=== PATIENT | female | born 2000 | race Asian ===

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

== ENCOUNTER 2019-02-02 15:52 | Outpatient (CLI) | payer BC ==
[2019-02-02 17:08] LABS: PLATELET COUNT 410 K/uL (152-353); SODIUM 140 mmol/L (136-145)
== END 2019-02-02 21:10 | disposition home or self-care (01) ==
LOC: LABW 15:52
PROVIDERS: Nurse Practitioner Family
DX: Z79.899 Other long term (current) drug therapy (principal)
CPT/HCPCS: 36415; 80053; 84702; 85027

== ENCOUNTER 2019-06-25 01:52 | Emergency (ER) | payer BC ==
[~2019-06-25] VITALS: Ht 144.8 cm; Wt 73.0 kg
[2019-06-25 01:55] VITALS: BP 125/89; TEMP 97.8
== END 2019-06-25 02:50 | disposition home or self-care (01) ==
LOC: ED 01:52
PROC: 09C37ZZ Extirpation of Matter from Right External Auditory Canal, Via Natural or Artificial Opening (ICD-10-PCS; principal; 2019-06-25)
DX: T16.1XXA Foreign body in right ear, initial encounter (principal)
CPT/HCPCS: 99283

== ENCOUNTER 2020-01-22 20:14 | Emergency (ER) | payer BC ==
[~2020-01-22] VITALS: Ht 144.8 cm; Wt 72.6 kg
[2020-01-22 21:02] LABS: PLATELET COUNT 345 K/uL (152-353)
[2020-01-22 21:12] LABS: POTASSIUM 4.2 mmol/L (3.6-5.2)
[2020-01-23 01:36] VITALS: BP 125/76; TEMP 98.7
== END 2020-01-23 01:36 | disposition home or self-care (01) ==
LOC: ED 20:14
PROVIDERS: Family Medicine
DX: R10.31 Right lower quadrant pain (principal); K57.92 Diverticulitis of intestine, part unspecified, without perforation or abscess without bleeding
CPT/HCPCS: 36415; 80053; 81000; 81025; 82150; 83690; 85027; 96361; 96365; 96375; 99284; J0696; J1885; J2405; Q9963

== ENCOUNTER 2021-02-18 09:52 | Outpatient (CLI) | payer BC ==
[2021-02-18 10:07] LABS: PLATELET COUNT 353 K/uL (152-353)
[2021-02-18 10:28] LABS: POTASSIUM 4.3 mmol/L (3.6-5.2)
== END 2021-02-18 21:58 | disposition home or self-care (01) ==
LOC: LABW 09:52
PROVIDERS: ATTEND Nurse Practitioner Family
DX: L20.89 Other atopic dermatitis (principal); Z79.899 Other long term (current) drug therapy
CPT/HCPCS: 36415; 80053; 85027

== ENCOUNTER 2021-05-28 11:24 | Emergency (ER) | payer BC ==
[~2021-05-28] VITALS: Ht 144.8 cm; Wt 77.1 kg
[2021-05-28 13:17] LABS: PLATELET COUNT 311 K/uL (152-353)
[2021-05-28 17:00] VITALS: BP 119/75; TEMP 98.5
== END 2021-05-28 17:00 | disposition home or self-care (01) ==
LOC: ED 11:24
PROVIDERS: Hospitalist
DX: U07.1 COVID-19 (principal); J06.9 Acute upper respiratory infection, unspecified; R19.7 Diarrhea, unspecified; R11.2 Nausea with vomiting, unspecified; F17.210 Nicotine dependence, cigarettes, uncomplicated
CPT/HCPCS: 36415; 80048; 81000; 81025; 85027; 96360; 96361; 96375; 96376; 99284; J2405

== ENCOUNTER 2022-03-06 22:01 | Emergency (ER) | payer BC ==
[~2022-03-06] VITALS: Ht 144.8 cm; Wt 73.5 kg
[2022-03-06] MEDS ORDERED: ALBU90AE13 INH (22:18)
[2022-03-06 23:40] VITALS: BP 119/65; TEMP 97.9
== END 2022-03-06 23:40 | disposition home or self-care (01) ==
LOC: ED 22:01
DX: J45.901 Unspecified asthma with (acute) exacerbation (principal); Z20.822 Contact with and (suspected) exposure to COVID-19
CPT/HCPCS: 36415; 87502; 87635; 87651; 94664; 96374; 99284; J2930; U0003